=== PATIENT | male | born 1975 | race Caucasian/White ===

== ENCOUNTER 2017-08-19 19:17 | Emergency (ER) | payer MEDICAID ==
[2017-08-19 19:27] VITALS: BP 126/86; BMI 23.7
--- NOTE | 2017-08-19 20:11 | DR.GENAD ---
HPI - PCP Primary Care Physician: URI CHAU - Complaint/Symptoms Chief Complaint Doctors Comments: Patient presents with headache, myalgia, chills and sweating for today. Cough and congestion the preceeding days. Chief Complaint:: FEVERISH, SINUS W/MUCUS, SORE THROAT X 3 DAYS Self Treatment fo Chief Complaint: NYQUIL, SUDAFED, TYLENOL - Source History Provided: Patient - Mode of Arrival Mode of Arrival: Ambulatory - Timing Onset of Chief Complaint: 08/17/17 PMH - PMH Past Medical History: Yes Past Medical History: Hypertension Past Surgical History: No - Family History History of Family Medical Conditions: No Family Medical History: Diabetes Mellitus, Cancer, [place], Hypertension - Social History Does patient currently use any type of tobacco product: Yes Have you used tobacco products in the last 12 months: Yes Type of Tobacco Use: Cigarettes Do you use any recreational Drugs:: No Lives With: Alone Lives Where: Home - infectious screening In the last 2 months have you had wt loss of >10#?: NO Have you had fever, night sweats or hemotysis?: No Have you traveled outside the country in the last 6 months?: No Isolation: Standard ROS - Review of Systems Eyes: No Symptoms Reported ENTM: No Symptoms Reported Respiratoy: No Symptoms Reported Cardiovascular: No Symptoms Reported Gastrointestinal/Abdominal: No Symptoms Reported Genitourinary: No Symptoms Reported Neurological: No Symptoms Reported Musculoskeletal: No Symptoms Reported Integumentary: No Symptoms Reported Hematologic/Lymphatic: No Symptoms Reported Endocrine: No Symptoms Reported Psychiatric: No Symptoms Reported All Other Systems: Reviewed and Negative PE - Vital Signs Vitals: Temperature 99.4 F Pulse Rate 79 Respiratory Rate 18 Blood Pressure 126/86 O2 Sat by Pulse Oximetry 94 - General Limitations: No Limitations General Appearance: Alert, In No Apparent Distress - Head Head Exam: Normal Inspection, Atraumatic - Eyes Eye exam: Normal Appearance, PERRL, EOMI - ENT ENT Exam: Normal Exam External Ear Exam: Normal External Inspection TM/Canal Exam: Bilateral Normal Nose Exam: Normal Nose Exam, Sinus Tenderness Mouth Exam: Normal Inspection Throat Exam: Normal Inspection - Neck Neck Exam: Normal Inspection, Full ROM - Chest Chest Inspection: Normal Inspection - Respiratory Respiratory Exam: Normal Lung Sounds Bilat Respiratory Exam: Bilateral Clear to Auscultation - Cardiovascular Cardiovascular Exam: Regular Rate, Normal Rhythm - Abdominal Exam Abdominal Exam: Normal Inspection, Normal Bowel Sounds Abdominal Tenderness: negative: RUQ, RLQ, LUQ, LLQ, Epigastrium, Suprapubic, Diffuse, Mild, Moderate, Severe, Other - Extremities Extremities Exam: Normal Inspection, Full ROM - Back Back Exam: Normal Inspection, Full ROM - Neurologic Neurological Exam: Alert, Oriented X3, CN II-XII Intact - Psychiatric Psychiatric Exam: Normal Affect - Skin Skin Exam: Warm, Dry, Intact - Discharge Plan Condition: Stable - Follow ups/Referrals Follow ups/Referrals: URI CHAU [Primary Care Provider] - 3 days - Instructions
--- NOTE | 2017-08-19 21:02 | DR.GENAD ---
HPI - PCP Primary Care Physician: URI CHAU - Complaint/Symptoms Chief Complaint Doctors Comments: I agree with statement Chief Complaint:: FEVERISH, SINUS W/MUCUS, SORE THROAT X 3 DAYS Self Treatment fo Chief Complaint: NYQUIL, SUDAFED, TYLENOL - Source History Provided: Patient - Mode of Arrival Mode of Arrival: Ambulatory - Timing Onset of Chief Complaint: 08/17/17 PMH - PMH Past Medical History: Yes Past Medical History: Hypertension Past Surgical History: No Unable to Obtain Due To: Altered mental status - Family History History of Family Medical Conditions: No Family Medical History: Diabetes Mellitus, Cancer, [place], Hypertension - Social History Does patient currently use any type of tobacco product: Yes Have you used tobacco products in the last 12 months: Yes Type of Tobacco Use: Cigarettes Do you use any recreational Drugs:: No Lives With: Alone Lives Where: Home - infectious screening In the last 2 months have you had wt loss of >10#?: NO Have you had fever, night sweats or hemotysis?: No Have you traveled outside the country in the last 6 months?: No Isolation: Standard ROS - Review of Systems Eyes: No Symptoms Reported ENTM: No Symptoms Reported Respiratoy: No Symptoms Reported Cardiovascular: No Symptoms Reported Gastrointestinal/Abdominal: No Symptoms Reported Genitourinary: No Symptoms Reported Neurological: No Symptoms Reported Musculoskeletal: No Symptoms Reported Integumentary: No Symptoms Reported Hematologic/Lymphatic: No Symptoms Reported Endocrine: No Symptoms Reported Psychiatric: No Symptoms Reported All Other Systems: Reviewed and Negative PE - Vital Signs Vitals: Temperature 99.4 F Pulse Rate 79 Respiratory Rate 18 Blood Pressure 126/86 O2 Sat by Pulse Oximetry 94 - General Limitations: No Limitations General Appearance: Alert, In No Apparent Distress - Head Head Exam: Normal Inspection, Atraumatic - Eyes Eye exam: Normal Appearance, PERRL, EOMI - ENT ENT Exam: Normal Oropharynx. negative: TM's Normal Bilaterally (Left TM red distorted landmarks) External Ear Exam: Normal External Inspection TM/Canal Exam: Bilateral Normal Nose Exam: Other (congestion) Mouth Exam: Normal Inspection Throat Exam: Normal Inspection - Neck Neck Exam: Normal Inspection, Full ROM - Chest Chest Inspection: Normal Inspection - Respiratory Respiratory Exam: Normal Lung Sounds Bilat, Accessory Muscle Use Respiratory Exam: Bilateral Clear to Auscultation - Cardiovascular Cardiovascular Exam: Regular Rate, Normal Rhythm - Abdominal Exam Abdominal Exam: Normal Inspection, Normal Bowel Sounds Abdominal Tenderness: negative: RUQ, RLQ, LUQ, LLQ, Epigastrium, Suprapubic, Diffuse, Mild, Moderate, Severe, Other - Extremities Extremities Exam: Normal Inspection, Full ROM - Back Back Exam: Normal Inspection - Neurologic Neurological Exam: Alert, Oriented X3, CN II-XII Intact - Psychiatric Psychiatric Exam: Normal Affect - Skin Skin Exam: Warm, Dry, Intact ROR - Labs Reviewed Laboratory Results Reviewed?: Yes (strep and influenza negative) Laboratory: Influenza Type A (PCR) Negative (NEGATIVE) 08/19/17 19:59 Influenza Type B (PCR) Negative (NEGATIVE) 08/19/17 19:59 Streptococcus Screen Negative (NEGATIVE) 08/19/17 19:59 - Diagnosis Discharge Problem: Otitis media Qualifiers: Otitis media type: suppurative Chronicity: acute Laterality: left Recurrence: not specified as recurrent Spontaneous tympanic membrane rupture: without spontaneous rupture Qualified Code(s): H66.002 - Acute suppurative otitis media without spontaneous rupture of ear drum, left ear Upper respiratory infection Qualifiers: URI type: unspecified viral URI Qualified Code(s): J06.9 - Acute upper respiratory infection, unspecified; B97.89 - Other viral agents as the cause of diseases classified elsewhere; B97.89 - Other viral agents as the cause of diseases classified elsewhere - Discharge Plan Condition: Stable - Follow ups/Referrals Follow ups/Referrals: URI CHAU [Primary Care Provider] - 3 days - Instructions
== END 2017-08-19 21:09 | disposition home or self-care (01) ==
LOC: ER 19:31
DX: H66.002 Acute suppurative otitis media without spontaneous rupture of ear drum, left ear (principal); J06.9 Acute upper respiratory infection, unspecified; B97.89 Other viral agents as the cause of diseases classified elsewhere
CPT/HCPCS: 87070; 87502; 87880; 99282

== ENCOUNTER 2021-08-25 23:08 | Observation (INO) ==
[2021-08-25] MEDS ORDERED: CATAPRES TAB 0.2 MG PO ONE (23:24)
--- NOTE | 2021-08-25 23:25 | DR.CP ---
HPI Time Seen Time Seen by Provider: 08/25/21 23:23 PCP Primary Care Physician: URI CHAU HPI Comment HPI Comment: PATIENT IS 45YR OLD MALE IN ER WITH CHEST PAIN TONIGHT AND LEFT SHOULDER PAIN TIMES ONE WEEK. PATIENT SAID HE ATE SPICY FOOD AND CHEST PAIN STARTED THEN. Complaint Chief Complaint Doctor Comments: CHEST PAIN. Chief Complaint:: PT STATES HIS SHOULDER HAS BEEN HURTING FOR A WEEK NOW HE WENT TO HIS DOCTOR AND SHE TOLD HIM IT WAS AIR BUILD UP. PT STATES HE ATE SOME SPICY FOOD TONIGHT AND AFTER THAT HIS CHEST STARTED HURTING. Self Treatment fo Chief Complaint: TYLENOL, HOT BATH COVID-19 Coronavirus risk:travel/contact w/high risk person: No Has patient experienced Coronavirus symptoms: No Reviewed Nurses Notes Review: Yes Source History Provided: Patient Mode of Arrival Mode of Arrival: Ambulatory Timing Onset of Chief Complaint: 08/18/21 Came on: Suddenly Duration Duration: Constant Duration: Days Location Location of Chest Pain: Left and Chest Chest Pain Radiation Location: Left Arm Context Onset: At rest PMH PMH Past Medical History: Yes Past Medical History: Anxiety and Hypertension Past Surgical History: No Family History History of Family Medical Conditions: Yes Family Medical History: Heart Failure and Hypertension Social History Does patient currently use any type of tobacco product: Yes Have you used tobacco products in the last 12 months: Yes Type of Tobacco Use: Cigarettes How many years tobacco product used: 25 Does any household member use tobacco: Yes Alcohol Use: None Do you use any recreational Drugs:: No Lives With: Mom Lives Where: Home Travel Risk Coronavirus risk:travel/contact w/high risk person: No Has patient experienced Coronavirus symptoms: No Infectious screening In the last 2 months have you had wt loss of >10#?: NO Have you had fever, night sweats or hemotysis?: No Have you traveled outside the country in the last 6 months?: No Isolation: Standard ROS Review of Systems Constitutional: See HPI, Weakness and Fatigue; negative Fever Eyes: No Symptoms Reported and See HPI ENTM: No Symptoms Reported and See HPI; negative Nose Discharge and Nose Congestion Respiratoy: No Symptoms Reported and See HPI; negative Orthopnea and Short of Breath Cardiovascular: See HPI and Chest Pain Gastrointestinal/Abdominal: No Symptoms Reported, See HPI and Abdominal Pain; negative Diarrhea and Vomiting Genitourinary: No Symptoms Reported and See HPI; negative Dysuria, Frequency and Hematuria Neurological: See HPI and Weakness; negative Headache and Dizziness Musculoskeletal: No Symptoms Reported and See HPI; negative Back Pain Integumentary: No Symptoms Reported and See HPI; negative Change in Color Hematologic/Lymphatic: No Symptoms Reported and See HPI; negative Easy Bleeding and Easy Bruising Endocrine: No Symptoms Reported and See HPI; negative Increased Thirst and Increased Urine Psychiatric: No Symptoms Reported and See HPI All Other Systems: Reviewed and Negative PE Vitals Vitals: Temperature 98.8 F Pulse Rate 64 Respiratory Rate 12 Blood Pressure 106/60 O2 Sat by Pulse Oximetry 97 General Limitations: No Limitations General Appearance: Alert and In No Apparent Distress Head Head Exam: Normal Inspection Eyes Eye exam: Normal Appearance; negative Scleral Icterus and Conjunctival Injection ENT ENT Exam: Normal Exam, Normal Oropharynx, Normal External Ear Exam and TM's Normal Bilaterally Chest Chest Inspection: Normal Inspection and Symmetric Chest Wall Rise; negative Tenderness Respiratory Respiratory Exam: Normal Lung Sounds Bilat; negative Accessory Muscle Use, Chest Wall Tenderness and Respiratory Distress Respiratory Exam: Bilateral: Clear to Auscultation Cardiovascular Cardiovascular Exam: Regular Rate, Normal Rhythm and Normal Heart Sounds; negative Systolic Murmur and Diastolic Murmur Pulse: Normal Edema: Normal Abdominal Exam Abdominal Exam: Normal Inspection, Normal Bowel Sounds and Soft; negative Tenderness Extremities Extremities Exam: Normal Inspection and Normal Capillary Refill Back Back Exam: Normal Inspection; negative (R) CVA Tenderness and (L) CVA Tenderness Neurologic Neurological Exam: Alert, Oriented X3 and CN II-XII Intact; negative Motor Sensory Deficit Psychiatric Psychiatric Exam: Normal Affect and Normal Mood Skin Skin Exam: Warm, Dry, Intact and Normal Color MDM Additional Information Additional Information Obtained From: Old Records Differential Diagnosis Differential Diagnosis: Angina, Chest Wall Pain, CHF, Costochondritis, Myocardial Infarction, Pericarditis, Pleuritis, Pneumonia and Pneumothorax COURSE Treatment Treatment: SEE ORDERS. ASA 81MG TAB, 3 TABS PO, CLONIDINE 0.3MG PO IN ER. BP DECREASING BUT STILL HIGH. Education/Counseling Education/Counseling: Patient Educated On: Diagnosis Education Comments: DISCUSSED PATIENT WITH DR. GORDON. HE WILL ADMIT PATIENT. ROR Labs Reviewed Laboratory Results Reviewed?: Yes Result Diagrams: 08/25/21 23:28 08/25/21 23:28 Laboratory: WBC 8.8 X10^3/uL (3.6-10.0) 08/25/21 23:28 RBC 5.13 X10^6/uL (4.7-6.0) 08/25/21 23: Hgb 15.0 g/dL (13.5-18.0) 08/25/21 23: Hct 42.4 % (42.0-54.0) 08/25/21 23: MCV 82.7 fL (80.0-100.0) 08/25/21 23: MCH 29.3 pg (27.0-34.0) 08/25/21 23: MCHC 35.4 g/dL (33.0-35.0) H 08/25/21 23: RDW 13.7 % (11.6-16.5) 08/25/21: Plt Count 258 X10^3/uL (150.0-450.0) 08/25/21: MPV 9.5 fL (7.4-11.0) 08/25/21 23: Neut % (Auto) 57.5 % (42.0-75.0) 08/25/21 23: Lymph % (Auto) 31.4 % (21.0-51.0) 08/25/21 23: [place] % (Auto) 7.4 % (0.0-13.0) 08/25/21: Eos % (Auto) 2.2 % (0.9-2.9) 08/25/21: Baso % (Auto) 1.5 % (0.2-1.0) H 08/25/21 23: Neut # (Auto) 5.1 x10^3/uL (2.2-4.8) H 08/25/21 23:28 Lymph # (Auto) 2.8 X10^3/uL (1.3-2.9) 08/25/21 23: [place] # (Auto) 0.7 x10^3/uL (0.3-0.8) 08/25/21 23: Eos # (Auto) 0.2 x10^3/uL (0.0-0.2) 08/25/21 23: Baso # (Auto) 0.1 X10^3/uL (0.0-0.1) 08/25/21 23:28 Absolute Nucleated RBC 0.1 /100WBC 08/25/21 23:28 Sodium 140 mmol/L (136-145) 08/25/21 23:28 Corrected Sodium TNP 08/25/21 23:28 Potassium 3.8 mmol/L (3.5-5.1) 08/25/21 23:28 Chloride 102 mmol/L (98-107) 08/25/21 23:28 Carbon Dioxide 29.3 mmol/L (21-32) 08/25/21 23:28 BUN 14 mg/dL (7-18) 08/25/21 23:28 Creatinine 1.06 mg/dL (0.70-1.30) 08/25/21 23:28 Est GFR (MDRD) Af Amer > 60 (>60) 08/25/21 23:28 Est GFR (MDRD) Non-Af > 60 (>60) 08/25/21 23:28 Glucose 107 mg/dL (65-99) H 08/25/21 23:28 Calcium 9.4 mg/dL (8.5-10.1) 08/25/21 23:28 Corrected Calcium TNP 08/25/21 23:28 Magnesium 2.1 mg/dL (1.7-2.9) 08/25/21 23:28 Total Bilirubin 0.30 mg/dL (0.2-1.0) 08/25/21 23:28 AST 16 Units/L (15-37) 08/25/21 23:28 ALT 36 Units/L (12-78) 08/25/21 23:28 Alkaline Phosphatase 67 Units/L (46-116) 08/25/21 23:28 Creatine Kinase 79 Units/L (39-308) 08/26/21 05:10 CK-MB (CK-2) < 1.0 ng/mL (0-4.0) 08/26/21 05:10 CK/CKMB % Calc 1.3 % (<4) 08/26/21 05:10 Troponin I < 0.02 ng/mL (0-1.5) 08/26/21 05:10 B-Natriuretic Peptide 25.3 pg/mL (0-79) 08/25/21 23:28 Total Protein 7.4 g/dL (6.4-8.2) 08/25/21 23:28 Albumin 4.0 g/dL (3.4-5.0) 08/25/21 23:28 Globulin 3.4 g/dL (2.5-4.5) 08/25/21 23: Albumin/Globulin Ratio 1.2 Ratio (1.1-2.1) 08/25/21 23:28 Specimen Type Clean catch urine 08/26/21 00: Urine Color Yellow (YELLOW) 08/26/21: Urine Appearance Clear (CLEAR) 08/26/21 00: Urine pH 6.0 (5.0 - 8.0) 08/26/21 00: Ur Specific [place] 1.025 (1.000-1.030) 08/26/21: Urine Protein Negative (NEGATIVE) 08/26/21: Urine Glucose (UA) Negative (NEGATIVE) 08/26/21: Urine Ketones Negative (NEGATIVE) 08/26/21 00: Urine Occult Blood Negative (NEGATIVE) 08/26/21: Urine Nitrite Negative (NEGATIVE) 08/26/21: Urine Bilirubin Negative (NEGATIVE) 08/26/21 00: Urine Urobilinogen 2+ (NORMAL) 08/26/21: Ur Leukocyte Esterase Negative (NEGATIVE) 08/26/21: Urine RBC None seen /HPF (0-3) 08/26/21 00: Urine WBC None seen /HPF (0-5) 08/26/21 00: Ur Squamous Epith Cells Negative /HPF (NEGATIVE) 08/26/21: Urine Bacteria Negative /HPF (NEGATIVE) 08/26/21: Ur Culture Indicated? No/not indicated 08/26/21 00: XRAY XRAY Interpreted by: Radiologist (REPORT NOTED AND DISCUSSED WITH PATIENT.) and Self EKG Rate: 59 [place]: Normal Rhythm: NSR Block: None Hypertrophy: LVH ST: Nonsp Opioid Opioid Risk Tool Age ([place] box if 16-45): Yes History of Preadolescent Sexual Abuse: No Total: 1 Total Score Risk Category: Low Risk Copyright: [facility] predicting aberrant behaviors Diagnosis Discharge Problem: Chest pain, rule out acute myocardial infarction Hypertension Qualifiers: Hypertension type: primary hypertension Qualified Code(s): I10 - Essential (primary) hypertension Instructions Instructions: Indigestion, [id number] Food Choices for Gastroesophageal Reflux Disease, Adult Nonspecific Chest Pain, Adult, [id number] Aspirin and Your Heart Steps to Quit Smoking, Iudj-pl-Iwdk Heartburn, Aqry-es-Ogud Chest Wall Pain, Dmjf-le-Wxhn Bradycardia, Adult Hypertension, Adult, [id number] Gastroesophageal Reflux Disease, Adult, Seuj-pz-Godx Angina, [id number] [place] Diet Forms: Precautions for COVID19 [facility] Social Distancing
[2021-08-25] MEDS ORDERED: CATAPRES TAB 0.2 MG ONE (23:31)
[2021-08-25 23:43] LABS: BASOPHILS # (AUTO) 0.1 X10^3/uL (0.0-0.1); BASOPHILS % (AUTO) 1.5 % (0.2-1.0); EOSINOPHILS # (AUTO) 0.2 x10^3/uL (0.0-0.2); EOSINOPHILS % (AUTO) 2.2 % (0.9-2.9); HEMATOCRIT 42.4 % (42.0-54.0); LYMPHOCYTES # (AUTO) 2.8 X10^3/uL (1.3-2.9); LYMPHOCYTES % (AUTO) 31.4 % (21.0-51.0); MEAN CORPUSCULAR HEMOGLOBIN 29.3 pg (27.0-34.0); MEAN CORPUSCULAR HGB CONC 35.4 g/dL (33.0-35.0); MEAN CORPUSCULAR VOLUME 82.7 fL (80.0-100.0); MEAN PLATELET VOLUME 9.5 fL (7.4-11.0); MONOCYTES # (AUTO) 0.7 x10^3/uL (0.3-0.8); MONOCYTES % (AUTO) 7.4 % (0.0-13.0); NEUTROPHILS # (AUTO) 5.1 x10^3/uL (2.2-4.8); NEUTROPHILS % (AUTO) 57.5 % (42.0-75.0); PLATELET COUNT 258 X10^3/uL (150.0-450.0); RED BLOOD COUNT 5.13 X10^6/uL (4.7-6.0); RED CELL DISTRIBUTION WIDTH 13.7 % (11.6-16.5); WHITE BLOOD COUNT 8.8 X10^3/uL (3.6-10.0)
[2021-08-25] MEDS ORDERED: PEPCID 20 MG IV PREMIX* 20 MG/50 ML BAG IV ONE (23:43)
[2021-08-25] MEDS ORDERED: ASPIRIN 81 MG CHEWTAB PO ONE ×2 (23:43→23:48)
[2021-08-25] MEDS ORDERED: PEPCID 20 MG IV PREMIX* 50 ML IV ONE (23:48)
[2021-08-25] MEDS ORDERED: ASPIRIN 81 MG CHEWTAB ONE (23:48)
[2021-08-25] MEDS ORDERED: NS 100 ML IV 100 ML ONE (23:48)
[2021-08-26] LABS: ALANINE AMINOTRANSFERASE 36 Units/L (12-78); ALKALINE PHOSPHATASE 67 Units/L (46-116); ASPARTATE AMINO TRANSFERASE 16 Units/L (15-37); BLOOD UREA NITROGEN 14 mg/dL (7-18); CALCIUM 9.4 mg/dL (8.5-10.1); CARBON DIOXIDE 29.3 mmol/L (21-32); CHLORIDE 102 mmol/L (98-107); CREATINE KINASE 104 Units/L (39-308); CREATINE KINASE MB < 1.0 ng/mL (0-4.0); CREATININE 1.06 mg/dL (0.70-1.30); MAGNESIUM 2.1 mg/dL (1.7-2.9); SODIUM 140 mmol/L (136-145); TOTAL PROTEIN 7.4 g/dL (6.4-8.2); eGFR NON BLACK RACES > 60 (>60)
[2021-08-26 00:46] LABS: BILIRUBIN,URINE NEGATIVE (NEGATIVE); BLOOD/HEMOGLOBIN,URINE NEGATIVE (NEGATIVE); GLUCOSE, URINE NEGATIVE (NEGATIVE); KETONES,URINE NEGATIVE (NEGATIVE); LEUKOCYTE ESTERASE ,URINE NEGATIVE (NEGATIVE); NITRITES,URINE NEGATIVE (NEGATIVE); PROTEIN,URINE NEGATIVE (NEGATIVE); UROBILINOGEN,URINE 2+ (NORMAL)
[2021-08-26 00:57] LABS: APPEARANCE,URINE CLEAR (CLEAR); COLOR,URINE YELLOW (YELLOW)
[2021-08-26 01:01] LABS: BACTERIA,URINE NEGATIVE /HPF (NEGATIVE); RBC,URINE NONE SEEN /HPF (0-3); SQUAMOUS EPITHELIAL CELL,UR NEGATIVE /HPF (NEGATIVE)
[2021-08-26] MEDS ORDERED: APRESOLINE INJ 20 MG VIAL IVP ONE (01:48)
[2021-08-26] MEDS ORDERED: TORADOL 30 MG VIAL IVP ONE (03:46)
[2021-08-26] MEDS ORDERED: TORADOL 30 MG VIAL ONE (03:50)
--- NOTE | 2021-08-26 05:31 | RAD ---
STUDY: FRONTAL VIEW CHESTCOMPARISON: NoneHISTORY: PT C/O CHEST PAINFINDINGS:No focal consolidation is seen.The heart size is within normal limits.The mediastinum is unremarkable.There is no evidence of pleural effusion or gross pneumothorax.The trachea is midline.IMPRESSION:1. No focal consolidation is seen.2. The heart size is normal.Electronically signed by: Blake Graham (Aug 26, 2021 05:29:42)
[2021-08-26 05:49] LABS: CKMB % 1.3 % (<4); CREATINE KINASE 79 Units/L (39-308); CREATINE KINASE MB < 1.0 ng/mL (0-4.0)
[2021-08-26] MEDS ORDERED: MORPHINE SULFATE INJ 4 MG IVP PRN (06:36)
[2021-08-26] MEDS ORDERED: ZOFRAN INJ 4 MG VIAL IVP PRN (06:36)
[2021-08-26] MEDS ORDERED: NS 1,000 ML IV 1,000 ML IV SCH (07:07)
[2021-08-26] MEDS ORDERED: NITROSTAT SL PRN (07:07)
[2021-08-26 07:53] VITALS: BMI 25.6
[2021-08-26] MEDS ORDERED: TRICOR TAB 145 MG PO SCH (09:00)
[2021-08-26] MEDS ORDERED: PEPCID 20 MG IV PREMIX* 20 MG/50 ML BAG IV SCH (09:00)
[2021-08-26] MEDS ORDERED: PROTONIX INJ 40 MG VIAL IVP SCH (09:00)
[2021-08-26] MEDS ORDERED: LOPRESSOR TAB 25 MG PO SCH (09:00)
[2021-08-26] MEDS ORDERED: ZESTRIL TAB 40 MG PO SCH (09:00)
[2021-08-26] MEDS ORDERED: ASPIRIN EC 81 MG PO SCH (09:00)
[2021-08-26 11:58] LABS: CKMB % 1.3 % (<4); CREATINE KINASE 75 Units/L (39-308); CREATINE KINASE MB < 1.0 ng/mL (0-4.0)
[2021-08-26 12:11] VITALS: BP 172/79
== END 2021-08-26 12:45 | disposition home or self-care (01) ==
LOC: ER 23:08 → MED/SURG 23:08
PROVIDERS: ADMIT Internal Medicine; ATTEND Internal Medicine